=== PATIENT | female | born 1985 | race Caucasian/White ===

== ENCOUNTER 2018-02-05 07:30 | Inpatient (IN) | payer OTHER ==
[2018-02-05] MEDS ORDERED: OLIVE OIL 118 ML BTL MISC PRN (11:10)
[2018-02-05] MEDS ORDERED: OXYTOCIN/RINGERS LACTATE 1,000 ML IV PRN (11:10)
[2018-02-05] MEDS ORDERED: LIDOCAINE 1% 300 MG/30 ML SDV SC PRN (11:10)
[2018-02-05] MEDS ORDERED: TERBUTALINE SULFATE 1 MG/ML VIAL IV PRN (11:10)
[2018-02-05] MEDS ORDERED: EPSOM SALT 454 GM TP PRN (11:10)
[2018-02-05] MEDS ORDERED: LR 1,000 ML IV PRN (11:10)
[2018-02-05] MEDS ORDERED: IBUPROFEN 600 MG TAB PO PRN (11:10)
[2018-02-05] MEDS ORDERED: MISOPROSTOL 200 MCG TAB PR PRN (11:10)
[2018-02-05] MEDS ORDERED: LR 500 ML IV PRN (11:23)
[2018-02-05] MEDS ORDERED: TERBUTALINE SULFATE 1 MG/ML VIAL ONE (11:27)
[2018-02-05] MEDS ORDERED: LIDOCAINE 1% 300 MG/30 ML SDV ONE (11:27)
[2018-02-05] MEDS ORDERED: AMMONIA AROMATIC 1 EACH AMP IH ONE (11:27)
[2018-02-05] MEDS ORDERED: OLIVE OIL 118 ML BTL ONE (11:27)
[2018-02-05] MEDS ORDERED: MISOPROSTOL 200 MCG TAB ONE (11:28)
[2018-02-05] MEDS ORDERED: OXYTOCIN 10 UNIT/ML VIAL ONE (11:28)
[2018-02-05] MEDS ORDERED: OXYTOCIN/RINGERS LACTATE 30 UNIT/500 ML BAG IV ONE (11:29)
[2018-02-05] MEDS ORDERED: OXYTOCIN/RINGERS LACTATE 500 ML IV SCH (11:30)
--- NOTE | 2018-02-05 12:03 | GHP ---
[f rep st] PREOP HISTORY AND PHYSICAL DATE OF ADMISSION: 02/05/2018 ADMISSION DIAGNOSIS: Intrauterine at 39 and 0/7 weeks' gestation for an elective induction of labor, secondary to history of rapid labor. HISTORY OF PRESENT ILLNESS: The patient is a 32-year-old, 4, para 2-0-1-2 with a last menstr ual period of 05/08/2017, and EDC of 02/12/2018, confirmed by 7 week ultrasound. She has had good pr enatal care at [facility] since registration at 7 weeks' gestation, and her EDC was confirm ed by 7 week ultrasound. Her risk factors, include history of rapid labors less than 4 hour s with G1 and G2, history of asthma, history of migraines, and a low-lying placenta that resolved. S he has proceeded to 39 weeks and has done well. She has had been having intermittent contractions ov er the past 2 days, increasing over the morning leeann every 4 minutes, gradually increasing in intensity, but not severe, and feels intact, no leakage of fluid, and is ready for an induction of la bor. PAST OBSTETRICAL HISTORY: In March of 2013, she had a viable female, 6 pounds 8 ounces, less oscar n 4 hours of labor, vaginal delivery. In December of 2014, she had again had a vaginal delivery of a via ble female, 7 pounds 5 ounces, less than 2 hours of labor, and then in 2016, she had a spontane ous at 6 weeks so this is her 4th current . PAST GYNECOLOGICAL HISTORY: She had a normal menstrual triad with menarche at age 13, interval every 28 days, length of 4 days. LMP was 05/08/2017. She had an abnormal Pap years ago and ASCUS with HP V had a negative colposcopy. No other procedures needed to be done. No other history of any gynecol ogical problems or STDs. PAST MEDICAL HISTORY: She has a history of asthma, never been intubated and not a current issue. Sh tony just uses inhaler p.r.n. for allergens. History of migraines that are also transient only. PAST SURGICAL HISTORY: [place] teeth extraction at age 15. ALLERGIES: She is allergic to Ceclor. It causes hives. MEDICATIONS: Include vitamins and DHA. LABORATORY DATA: She is O positive. Antibody negative. RPR nonreactive. Rubella immune. Hepatiti s negative. HIV negative. Pap normal. Gonorrhea and chlamydia normal. 1-hour GTT 133, 3-hour GTT was normal. GBS is negative. SOCIAL HISTORY: She is . She lives with her and her 2 daughters. 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 She denies tobacco, alcohol, and drug use. FAMILY HISTORY: Paternal grandfather had an NC, of CHF in his 80s. Mother has hypercholesterol emia. Brother and mother both have asthma as well. Maternal grandmother had type 2 diabetes. Pater nal grandfather had prostate cancer and a stroke. OBJECTIVE: VITAL SIGNS: Today, she is afebrile. Vital signs are stable. heart tones are 130 s, reactive, moderate variability, category 1. She is leeann every 4-5 minutes. PELVIC: Cervi x on exam is 4 cm, 70% effaced, baby is -2 to -3 and ballotable, but cephalic. ASSESSMENT/PLAN: A 32-year-old, 4, para 2-0-1-2, who is 39 and 0/7 weeks' today, history of rapid labors for an elective induction of labor. We will start Pitocin per protocol, bring the contractions closer together, and hopefully the head wi ll descend and be better applied to the cervix, and I will artificial rupture of membranes her for au gmentation. /[id number]/MODL
[2018-02-05 12:26] LABS: PLATELET COUNT 217 10^3/uL (150-400)
--- NOTE | 2018-02-05 15:17 | OBPROG ---
Labor Progress Note Assessment/Plan: Assessment: 32 y/o @ 39 weeks for elective IOL doing well Plan: Pt is doing well on pitocin and making progress now after SROM. She is not sure if she desires an epidural and will wait for now. status is reassuring. 02/05/18 15:17 Subjective/Intrapartum Course: 02/05/18 15:14 Pt is beginning to feel stronger contractions and she SROM for clear fluid. Objective: 02/05/18 12:00 Patient ABO/Rh O POSITIVE 02/05/18 12:00 - SVE Dilation (cm): 5 Effacement (%): 80 Station: -1 Membranes: SROM Amniotic Fluid Color: Clear - Contraction Pattern Assessment Current Contraction Pattern: Regular (Q 2-3) - FHR Assessment Cortes FHR (bpm): 130 FHR Pattern Variability: Moderate FHR Category: 1 - AP Antepartum Course: 02/05/18 15:15 H/o rapid labors with G1 and G2 H/o asthma, h/o migraines Oxytocin Orders Assessment - Pre-Induction/Augmentation Assessment Gestational Age: 39 week(s) and 0 day(s) ICD10 Worksheet Patient Problems: Problems Problem Status Onset Precipitous delivery Acute
[2018-02-05] MEDS ORDERED: HYDROCORTISONE 0.5% CREAM TP PRN (16:18)
[2018-02-05] MEDS ORDERED: SIMETHICONE 80 MG TAB CHEW PO PRN (16:18)
[2018-02-05] MEDS ORDERED: oxyCODONE IR 5 MG TAB PO PRN (16:18)
[2018-02-05] MEDS ORDERED: DOCUSATE SODIUM 100 MG CAP PO PRN (16:18)
--- NOTE | 2018-02-05 16:22 | OBDEL ---
Info Type: Vaginal Presentation at Delivery: Vertex L&D Analgesia/Anesthesia Type: None GBS+: No - Hospital Course Intrapartum: 02/05/18 15:14 Pt is beginning to feel stronger contractions and she SROM for clear fluid. Indications for Delivery: Elective (H/o rapid labors) Vaginal Delivery - Delivery Provider Delivery Physician/CNM: Radha Reyes - Labor and Delivery Onset of Contractions Date: 02/05/18 Onset of Contractions Time: 15:05 Onset of Contractions Type: Induced Rupture of Membranes Date: 02/05/18 Rupture of Membranes Time: 15:05 Rupture of Membranes Type: Spontaneous Amniotic Fluid Color: Clear Dilation Complete Date: 02/05/18 Dilation Complete Time: 16:05 Placenta Delivery Date: 02/05/18 Placenta Delivery Time: 16:11 Total Hours of Labor: 1 Laceration: Other (Specify) (none) Vaginal Sponge Count Correct: Yes Vaginal Needle Count Correct: Yes Vaginal Sweep Performed: Yes EBL: 200 Delivery Events: None - Medications Labor Augmentation/Induction Methods Used: Pitocin Labor Augmentation/Induction Indication: Other (Specify) (h/o rapid labors) Data FUENTES: 02/12/18 Gestational Age: 39 week(s) and 0 day(s) Cortes Delivery Date: 02/05/18 Delivery Time: 16:07 Sex of Infant: Female Score (1 Min): 8 Score (5 Min): 9 ICD10 Worksheet Patient Problems: Problems Problem Status Onset (spontaneous vaginal delivery) Acute Precipitous delivery Acute - ICD10 Problem Qualifiers (1) (spontaneous vaginal delivery)
[2018-02-05] MEDS: ACETAMINOPHEN 325 MG TAB PO SCH (20:09)
[2018-02-05] MEDS: IBUPROFEN 600 MG TAB PO SCH (23:37)
[2018-02-06] MEDS: ACETAMINOPHEN 325 MG TAB PO SCH ×3 (02:17→16:21)
[2018-02-06] MEDS: IBUPROFEN 600 MG TAB PO SCH ×2 (06:26→12:00)
[2018-02-06 10:36] VITALS: BP 115/77
--- NOTE | 2018-02-06 11:26 | OBGCSDC ---
General Delivery Information - General Info : 3 Para: 3 Abortions: 0 Type: Vaginal L&D Analgesia/Anesthesia Type: None Admission Date: 02/05/18 Labs: Patient ABO/Rh O POSITIVE 02/05/18 12:00 Hct 38.6 % (38.0-47.0) 02/05/18 12:00 - Hospital Course Antepartum: 02/05/18 15:15 H/o rapid labors with G1 and G2 H/o asthma, h/o migraines Intrapartum: 02/05/18 15:14 Pt is beginning to feel stronger contractions and she SROM for clear fluid. : 02/06/18 15:38 S) Pt doing well, reports min pain and bleeding. she is ambulating and voiding without difficulty. She is . She desires discharge home today. O) VSS, afebrile constitutional: WNWF, A&Ox3 HEENT: normocephalic, atraumatic, supple Heart: RRR, No murmur Chest: CTA-B Abdomen: Soft, nontender Uterus: Firm at U-2 Lochia: Minimal rubra Perineum: Intact, healing well Extremities: Trace edema, and negative Yue's sign Neuro: Grossly normal A) 32 year-old S/P PPD#2 P) Discharge home today Continue Pelvic rest x6wks Discussed danger signs (infection, preeclampsia, depression, heavy bleeding, etc) RTO in 4/6 weeks Vaginal - Delivery Provider Delivery Physician/CNM: Radha Reyes - Diagnosis Labor: Induced Rupture of Membranes Type: Spontaneous Amniotic Fluid Color: Clear Laceration: Other (Specify) (none) Delivery Events: None - Delivery EBL: 200 [place] Data FUENTES: 02/12/18 Gestational Age: 39 week(s) and 1 day(s) Cortes Delivery Date: 02/05/18 Delivery Time: 16:07 Sex of Infant: Female [place] Weight (gm): 2984 g Score (1 Min): 8 Score (5 Min): 9 Discharge Information - Discharge Information Prescriptions: Docusate Sodium [Colace 100 MG (*)] 100 mg PO BID PRN #60 cap PRN Reason: Constipation Ibuprofen [Motrin (*)] 600 mg PO Q6H #30 tab Condition: Good
== END 2018-02-06 17:00 | disposition home or self-care (01) | DRG 775 ==
LOC: FLD 10:51 → FOB 20:52
PROVIDERS: ADMIT Obstetrics & Gynecology; ATTEND Obstetrics & Gynecology
PROC: 3E033VJ Introduction of Other Hormone into Peripheral Vein, Percutaneous Approach (ICD-10-PCS; principal; 2018-02-05)
PROC: 10E0XZZ Delivery of Products of Conception, External Approach (ICD-10-PCS; principal; 2018-02-05)
DX: O80 Encounter for full-term uncomplicated delivery (principal); Z37.0 Single live birth; Z3A.39 39 weeks gestation of pregnancy
CPT/HCPCS: J2590; J3105